=== PATIENT | male | born 1970 | race Caucasian/White ===

== ENCOUNTER → 2016-06-15 | Outpatient (CLI) | payer OTHER ==
--- NOTE | 2016-06-15 14:28 | CT ---
EXAM DESCRIPTION: Abdomen/Pelvis w/Contrast CLINICAL HISTORY: FLANK PAIN COMPARISON: February 01, 2000 TECHNIQUE: CT of the abdomen and pelvis was performed . Multiple axial images and multiplanar reconstructions were generated. This exam was performed according to our department minimal dose optimization program which includes automated exposure control, adjustment of mA and/or kV according to patient size and/or use of iterative reconstructed techniques. FINDINGS: Lung bases: The visualized lung bases are clear. Solid organs: The liver, spleen, pancreas, kidneys, and adrenal glands are normal. Gastrointestinal: The stomach, small intestine, and large intestine are normal. Gallbladder is unremarkable. The appendix is normal. No free fluid or free air. Vascular: Normal. Lymph nodes: No pathologically enlarged lymph nodes are present by CT size criteria. Musculoskeletal and soft tissues: No destructive osseous lesions are present. Urinary bladder and pelvic organs: The urinary bladder is normal. IMPRESSION: 1. Today's CT of the abdomen and pelvis is essentially unremarkable with no findings to account for patient's flank pain. Specifically, no evidence of renal stone or gallbladder abnormality. Electronically signed by: Juan F Lin MD 06/15/2016 2:27 PM CDT
== END | disposition home or self-care (01) ==
LOC: CT 08:45
PROVIDERS: ATTEND Nurse Practitioner Family
DX: M54.5 Low back pain (principal)

== ENCOUNTER → 2017-04-12 | Outpatient (CLI) | payer BC | LOC: GMAJ 15:19 | PROVIDERS: ATTEND Family Medicine | DX: E03.9 Hypothyroidism, unspecified (principal) ==

== ENCOUNTER → 2017-11-19 | Outpatient (CLI) | payer BC | LOC: GMAJ 11:19 | PROVIDERS: ATTEND Family Medicine | DX: Z00.00 Encounter for general adult medical examination without abnormal findings (principal) ==

== ENCOUNTER → 2018-08-03 | Outpatient (CLI) | payer BC | LOC: GMAJ 15:33 | PROVIDERS: ATTEND Family Medicine | DX: E03.9 Hypothyroidism, unspecified (principal); I10 Essential (primary) hypertension ==

== ENCOUNTER → 2018-08-25 | Outpatient (CLI) | payer BC ==
--- NOTE | 2018-08-26 09:38 | US ---
US THYROID CLINICAL STATEMENT: NODULE. No palpable mass. No previous thyroid surgery or thyroid therapy. COMPARISON: None TECHNIQUE: Transcutaneous scanning, grayscale and Doppler modes. FINDINGS: Size right thyroid lobe: 4.0 x 2.2 x 1.4 cm Size left thyroid lobe: 3.2 x 1.8 x 1.6 cm Size isthmus: 0.27 cm Estimated total number of nodules greater than or equal to 1 cm: None Nodule 1: Size: 0.9 x 0.8 x 0.5 cm. Not vascular. Location: Left Mid Composition: solid or almost completely solid: 2 points Echogenicity: hypoechoic: 2 points Shape: wider than tall: 0 points Margins: smooth: 0 points Echogenic foci: none: 0 points ACR Total Points: 4; ACR TI-RADS risk category: TR4 - moderately suspicious nodule. No distinct cysts, large calcifications, or parenchymal edema in the thyroid gland. No dominant solid mass or distinct cyst in the surrounding soft tissues. IMPRESSION: 1. Nodule 1: ACR TI-RADS 2017 Category TR4. Recommend: No further follow-up.. Recommendations based upon [facility] recommendations and ACR TI-RADS 2017 guidelines. Please see below*. 2. Soft tissue around the thyroid gland is unremarkable. *ACR TI-RADS 2017 Recommendations: TR1: No FNA or follow up TR2: No FNA or follow up TR3: FNA if >/= 2.5 cm, follow up if 1.5 - 2.4 cm in 1, 3, and 5 years TR4: FNA if >/= 1.5 cm, follow up if 1.0 - 1.4 cm in 1, 2, 3, and 5 years TR5: FNA if >/= 1.0 cm, follow up if 0.5 - 0.9 cm every year for 5 years ACR TI-RADS recommends that no more than two nodules with the highest ACR TI-RADS total point should be biopsied and no more than four nodules should be followed. These recommendations do not apply to patients with increased risk for thyroid cancer or patients with symptomatic thyroid disease. Electronically signed by: Francesco Stiles MD 08/26/2018 9:36 AM CDT
== END ==
LOC: US 16:07
PROVIDERS: ATTEND Family Medicine
DX: E04.1 Nontoxic single thyroid nodule (principal)

== ENCOUNTER → 2019-08-17 | Outpatient (CLI) | payer BC | LOC: GMAJ 14:29 | PROVIDERS: ATTEND Family Medicine | DX: E03.9 Hypothyroidism, unspecified (principal); I10 Essential (primary) hypertension ==